=== PATIENT | female | born 1995 | race African-American/Black ===

== ENCOUNTER 2018-08-20 14:48 | Emergency (ER) | payer OTHER ==
[~2018-08-20] VITALS: Ht 154.9 cm; Wt 83.9 kg
[2018-08-20] MEDS ORDERED: ACETAMINOPHEN-1 EAC1 PO (15:40)
[2018-08-20] MEDS ORDERED: NAPROSYN500 MG PO (15:40)
[2018-08-20 15:54] VITALS: BP 103/75
== END 2018-08-20 15:54 | disposition home or self-care (01) ==
LOC: M.ERS 14:48
DX: S92.422A Displaced fracture of distal phalanx of left great toe, initial encounter for closed fracture (principal); W22.8XXA Striking against or struck by other objects, initial encounter; Y93.89 Activity, other specified; Y92.89 Other specified places as the place of occurrence of the external cause; Y99.8 Other external cause status